=== PATIENT | female | born 1950 | race Caucasian/White ===

== ENCOUNTER 2019-05-29 15:40 | Emergency (ER) | payer OTHER, BC, MEDICARE ==
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
[2019-05-29] MEDS ORDERED: OXYCODONE-ACETAMINOPHEN 5-325 MG TABLET PO ONE (17:03)
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
[2019-05-29 17:57] LABS: ABSOLUTE BASOPHILS # (AUTO) 0.1 10^3/uL (0.0-0.2); ABSOLUTE EOSINOPHILS # (AUTO) 0.1 10^3/uL (0.0-0.6); ABSOLUTE LYMPHOCYTES (AUTO) 1.3 10^3/uL (0.5-4.7); ABSOLUTE MONOCYTES (AUTO) 0.5 10^3/uL (0.1-1.4); ABSOLUTE NEUT (AUTO) 8.6 10^3/uL (1.7-8.2); BASOPHILS % (AUTO) 0.6 % (0-2); EOSINOPHILS % (AUTO) 0.9 % (0-6); HEMATOCRIT 38.6 % (36.0-47.0); HEMOGLOBIN 12.6 g/dL (12.0-15.5); LYMPHOCYTES % (AUTO) 12.3 % (13-45); MEAN CORPUSCULAR HEMOGLOBIN 29.7 pg (27.0-33.4); MEAN CORPUSCULAR HGB CONC 32.7 g/dL (32.0-36.0); MEAN CORPUSCULAR VOLUME 91 fl (80-97); MONOCYTES % (AUTO) 4.9 % (3-13); PLATELET COUNT 211 10^3/uL (150-450); RED BLOOD COUNT 4.25 10^6/uL (3.72-5.28); RED CELL DISTRIBUTION WIDTH 13.7 % (11.5-14.0); SEGMENTED NEUTROPHILS % (AUTO) 81.3 % (42-78); TOTAL CELLS COUNTED % (AUTO) 100 %; WHITE BLOOD COUNT 10.6 10^3/uL (4.0-10.5)
[2019-05-29 18:14] LABS: INTERNATIONAL RATION (INR) 0.99; PROTHROMBIN TIME 13.1 SEC (11.4-15.4)
[2019-05-29 18:15] LABS: PARTIAL THROMBOPLASTIN TIME 26.6 SEC (23.5-35.8)
[2019-05-29 18:24] LABS: ALBUMIN 4.1 g/dL (3.5-5.0); ALKALINE PHOSPHATASE 67 U/L (38-126); ANION GAP 6 (5-19); ASPARTATE AMINO TRANSFERASE 39 U/L (14-36); BILIRUBIN,DIRECT 0.1 mg/dL (0.0-0.4); BILIRUBIN,TOTAL 0.2 mg/dL (0.2-1.3); BLOOD UREA NITROGEN 16 mg/dL (7-20); CARBON DIOXIDE 29 mmol/L (22-30); CHLORIDE 105 mmol/L (98-107); CREATINE KINASE 315 U/L (30-135); GLUCOSE 110 mg/dL (75-110); POTASSIUM 4.4 mmol/L (3.6-5.0); TOTAL PROTEIN 7.4 g/dL (6.3-8.2)
[2019-05-29 18:29] LABS: TROPONIN I < 0.012 ng/mL
[2019-05-29 18:30] LABS: APPEARANCE,URINE CLEAR; BILIRUBIN,URINE NEGATIVE (NEGATIVE); COLOR,URINE YELLOW; GLUCOSE, URINE NEGATIVE (NEGATIVE); KETONES,URINE TRACE mg/dL (NEGATIVE); LEUKOCYTE ESTERASE,URINE NEGATIVE (NEGATIVE); NITRITE,URINE NEGATIVE (NEGATIVE); PROTEIN,URINE NEGATIVE (NEGATIVE); URINE SPECIFIC GRAVITY 1.025; UROBILINOGEN,URINE NEGATIVE mg/dL (<2.0)
[2019-05-29] MEDS ORDERED: HYDROMORPHONE HCL INJ/PF 2 MG/ML AMPULE IV ONE (23:11)
[2019-05-29] MEDS ORDERED: ONDANSETRON HCL INJ/PF 4 MG/2 ML SDV IV ONE (23:12)
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
[2019-05-30 02:22] VITALS: BP 138/88
--- NOTE | 2019-05-30 07:18 | EKG REPORT ---
SEVERITY:- NORMAL ECG - SINUS RHYTHM : Confirmed by: Carolee Purcell 30-May-2019 07:18:17
== END 2019-05-30 02:21 | disposition home or self-care (01) ==
LOC: ER 15:40
DX: S29.8XXA Other specified injuries of thorax, initial encounter (principal); S39.91XA Unspecified injury of abdomen, initial encounter; V89.2XXA Person injured in unspecified motor-vehicle accident, traffic, initial encounter; Z88.2 Allergy status to sulfonamides
CPT/HCPCS: 93005; 99285; 96374; 96375; 36415; 82553; 82550; 85025; 85610; 85730; 80053; 81001; 84484; 71046; 73522; 71260; 74177; 93010; J1170; J2405